=== PATIENT | male | born 1985 | race Two or more races ===

== ENCOUNTER 2016-05-27 09:58 | Emergency (ER) | payer SELFPAY ==
[2016-05-27 11:49] VITALS: BP 134/78
== END 2016-05-27 11:49 | disposition home or self-care (01) ==
LOC: ED 09:58
DX: S29.012A Strain of muscle and tendon of back wall of thorax, initial encounter (principal); V49.9XXA Car occupant (driver) (passenger) injured in unspecified traffic accident, initial encounter; Y93.89 Activity, other specified; Y99.8 Other external cause status; Y92.89 Other specified places as the place of occurrence of the external cause